=== PATIENT | male | born 1960 | race Caucasian/White ===

== ENCOUNTER 2016-06-20 10:21 | Emergency (ER) | payer SELFPAY ==
[2016-06-20 10:41] VITALS: BP 136/99; TEMP 96.8; O2SAT 95
--- NOTE | 2016-06-20 11:10 | RAD ---
EXAM DESCRIPTION: XR HAND 3 OR MORE VIEWS CLINICAL HISTORY: hand pain,tripped over dog COMPARISON: None available FINDINGS: Three views of the right hand show a slightly displaced and angulated fracture involving the right 5th metacarpal head and neck with intra-articular extension. No additional fracture or malalignment is seen period there is no radiopaque foreign body or soft tissue gas period IMPRESSION: Slightly displaced and angulated right 5th metacarpal head and neck fracture with intra-articular extension period Electronically signed by: Alexis Taylor DO 06/20/2016 11:09
--- NOTE | 2016-06-20 11:30 | ED.PDOC ---
History of Present Illness - General Chief Complaint: Upper Extremity Injury Stated Complaint: Fell and hurt Right hand Time Seen by Provider: 06/20/16 11:27 Source: patient, RN notes reviewed, Vital Signs reviewed Exam Limitations: no limitations - History of Present Illness Initial Comments: Patient is a 56 y/o male who states he fell while chasing his great rizwan last night and fell on his right hand. The hand is swollen and he feels like something is broken. Also, he has COPD and needs a refill on his inhaler. Timing/Duration: 24 hours Severity: severe Improving Factors: immobilization Worsening Factors: movement Associated Symptoms: denies symptoms Allergies/Adverse Reactions: Allergies Erythromycin Allergy (Verified 03/10/15 12:24) Home Medications: Ambulatory Orders HYDROcodone 10MG/APAP 325MG [Cutler 10] 1 tab PO TID 10/22/14 Albuterol Inhaler [Ventolin Hfa Inhaler] 2 puff INH Q6H PRN #1 inh 06/20/16 Amlodipine Besylate 10 mg PO DAILY 06/20/16 Lisinopril & Hydrochlorothiazi [Lisinopril/Hctz 20-25 mg] 1 tab PO BID 06/20/16 Review of Systems - Review of Systems Constitutional: States: no symptoms reported EENTM: States: no symptoms reported Respiratory: States: short of breath Cardiology: States: no symptoms reported Gastrointestinal/Abdominal: States: no symptoms reported Genitourinary: States: no symptoms reported Musculoskeletal: States: back pain, joint pain, joint swelling Skin: States: change in color - hand has turned blue around fracture Neurological: States: no symptoms reported Endocrine: States: no symptoms reported Hematologic/Lymphatic: States: no symptoms reported All other Systems: Reviewed and Negative Past Medical History (General) - Patient Medical History Hx Seizures: No Hx Stroke: No Hx Dementia: No Hx Asthma: No Hx of COPD: Yes Hx Cardiac Disorders: No Hx Congestive Heart Failure: No Hx Pacemaker: No Hx Hypertension: Yes Hx Thyroid Disease: No Hx Diabetes: Yes - "I used to be Diabetic, but I'm not now" Hx Gastroesophageal Reflux: No Hx Renal Disease: No Hx Cancer: No Hx of HIV: No Hx Hepatitis C: No Hx MRSA: No Surgical History: cholecystectomy - Vaccination History Hx Tetanus, Diphtheria Vaccination: No Hx Influenza Vaccination: No Hx Pneumococcal Vaccination: Yes - Social History Hx Tobacco Use: Yes Hx Chewing Tobacco Use: No Hx Alcohol Use: Yes - Quart of Vodka every week Hx Substance Use: No Hx Substance Use Treatment: No Hx Depression: No Family Medical History - Family History Mother Family History: No Known Living Status: Cause of : old age Physical Exam - Physical Exam General Appearance: Alert, Obvious distress, Obese Eye Exam: bilateral normal Ears, Nose, Throat: hearing grossly normal Respiratory: lungs clear, normal breath sounds, no respiratory distress, no accessory muscle use Cardiovascular/Chest: normal peripheral pulses, regular rate, rhythm, no edema, no murmur Gastrointestinal/Abdominal: normal bowel sounds Extremity: inflammation, swelling, other - ecchymosis at ulner side of hand with pain with palpation. Neurologic: alert, normal mood/affect, oriented x 3 Skin Exam: warm/dry, other - ecchymosis and erythema ulnar hand Progress - EKG/XRAY/CT XRAY: hand - R: Slightly angulated distal 5th metacarpal fracture. Departure - Departure Clinical Impression: Fracture, metacarpal Qualifiers: Encounter type: initial encounter Metacarpal bone: fifth Fracture type: closed Metacarpal location: neck Fracture alignment: displaced Laterality: right Qualifier Code: (S62.336A) Displaced fracture of neck of fifth metacarpal bone, right hand, initial encounter for closed fracture COPD (chronic obstructive pulmonary disease) Qualifiers: COPD type: unspecified COPD Qualifier Code: (J44.9) Chronic obstructive pulmonary disease, unspecified Time of Disposition: 11:35 Disposition: Discharge to Home or Self Care Condition: Fair Departure Forms: ED Discharge - Pt. Copy, Patient Portal Self Enrollment Instructions: Boxer's Fracture, DI for Boxer's Fracture Diet: resume usual diet Referrals: Hieu Langley MD [Active Staff] - 1-5 Days (56 y/o male with mildly displaced right 5th boxer's fracture.) Prescriptions: Albuterol Inhaler [Ventolin Hfa Inhaler] 2 puff INH Q6H PRN #1 inh PRN Reason: Shortness Of Breath Home Medications: Ambulatory Orders HYDROcodone 10MG/APAP 325MG [Cutler 10/325] 1 tab PO TID 10/22/14 Albuterol Inhaler [Ventolin Hfa Inhaler] 2 puff INH Q6H PRN #1 inh 06/20/16 Amlodipine Besylate 10 mg PO DAILY 06/20/16 Lisinopril & Hydrochlorothiazi [Lisinopril/Hctz 20-25 mg] 1 tab PO BID 06/20/16 Additional Instructions: Call Dr. Langley's office ([phone]) on Wednesday AM for appointment.
== END 2016-06-20 11:35 | disposition home or self-care (01) ==
LOC: ER 10:21
DX: S62.366A Nondisplaced fracture of neck of fifth metacarpal bone, right hand, initial encounter for closed fracture (principal); J44.9 Chronic obstructive pulmonary disease, unspecified; I10 Essential (primary) hypertension; E11.9 Type 2 diabetes mellitus without complications; Z88.3 Allergy status to other anti-infective agents; Z87.891 Personal history of nicotine dependence; W19.XXXA Unspecified fall, initial encounter